=== PATIENT | male | born 1985 | race Caucasian/White ===

== ENCOUNTER 2022-07-01 20:47 | Emergency (ER) | payer BC ==
[2022-07-01 21:54] LABS: HEMOGLOBIN 15.4 gm/dl (14.0-17.5); RED BLOOD COUNT 5.2 M/UL (4.20-5.50); WHITE BLOOD COUNT 4.4 K/UL (4.5-11.0)
[2022-07-01 22:14] LABS: BUN/CREATININE RATIO 20 (0-10)
[2022-07-02] MEDS ORDERED: IBUPROFEN600 MG PO (00:42)
== END 2022-07-02 00:48 | disposition home or self-care (01) ==
LOC: ER1 20:47
PROVIDERS: Physician Assistant
DX: M79.622 Pain in left upper arm (principal)
CPT/HCPCS: 71045; 80053; 82550; 82553; 83880; 84484; 85025; 85610; 85730; 93005; 96374; 99284; J1885